=== PATIENT | female | born 1960 | race Caucasian/White ===

== ENCOUNTER 2017-09-22 08:49 | Day surgery (SDC) | payer BC ==
[~2017-09-22] VITALS: Ht 162.6 cm; Wt 70.8 kg
[~2017-09-22 08:49] MED LIST: CEFAZOLIN 1 GM IVPB PREMIX 50 ML IV ONE
[2017-09-22] MEDS ORDERED: fentaNYL CITRATE 250 MCG/5 ML AMP IV ONE (11:31)
[2017-09-22] MEDS ORDERED: PROPOFOL 200MG/ 20ML VIAL (DIPRIVAN) IV ONE (11:31)
[2017-09-22] MEDS ORDERED: KETOROLAC TROMETHAMINE 30 MG VIAL IVP ONE (11:31)
[2017-09-22] MEDS ORDERED: DEXAMETHASONE SOD PHOSPHATE 4 MG/ML VIAL IVP ONE (11:31)
[2017-09-22] MEDS ORDERED: MIDAZOLAM HCL 5 MG/5 ML VIAL IVP ONE (11:31)
[2017-09-22] MEDS ORDERED: NS 1000 ML BAG IV ONE (11:31)
[2017-09-22] MEDS ORDERED: SEVOFLURANE 15 MIN GAS INH ONE (11:31)
[2017-09-22] MEDS ORDERED: HYDROcodone/ACETAMIN 5-325 MG TAB (NORCO/ VICODIN) PO PRN (12:15)
[2017-09-22] MEDS ORDERED: OXYCODONE/ACETAMINOPHEN 5-325 TABLET PO PRN (12:15)
[2017-09-22] MEDS ORDERED: PROMETHAZINE HCL 25 MG/ML AMP IM PRN (12:15)
[2017-09-22] MEDS ORDERED: ONDANSETRON HCL 4 MG/2 ML VIAL IVP PRN ×3 (12:15→12:30)
[2017-09-22] MEDS ORDERED: LR 1,000 ML IV ONE (12:21)
[2017-09-22] MEDS ORDERED: DIPHENHYDRAMINE INJ 50 MG/ML VIAL IVP PRN (12:30)
[2017-09-22] MEDS ORDERED: KETOROLAC TROMETHAMINE 30 MG VIAL IM PRN (12:30)
[2017-09-22] MEDS ORDERED: ePHEDrine sulfate 50 MG/ML VIAL IVP PRN (12:30)
[2017-09-22] MEDS ORDERED: NALBUPHINE HCL 10 MG/ML AMP IVP PRN (12:30)
[2017-09-22] MEDS ORDERED: NALOXONE HCL 0.4 MG/ML AMP (NARCAN) IVP PRN (12:30)
[2017-09-22] MEDS ORDERED: fentaNYL CITRATE/PF 100 MCG/2 ML AMP IVP PRN (12:30)
[2017-09-22 16:11] VITALS: BP_SYST 118
== END 2017-09-22 14:30 | disposition home or self-care (01) ==
LOC: SDS 08:49 → SMU 08:50 → SDS 14:30
PROVIDERS: ATTEND Specialist
DX: N95.0 Postmenopausal bleeding (principal); Z88.8 Allergy status to other drugs, medicaments and biological substances; M19.90 Unspecified osteoarthritis, unspecified site
CPT/HCPCS: 58558; 88305; J0690; J1100; J1885; J2250; J2704; J3010; J7030; J7120

== ENCOUNTER 2017-12-04 07:05 | Observation (INO) | payer BC ==
[~2017-12-04] VITALS: Ht 162.6 cm; Wt 74.8 kg
[2017-12-04 07:14] VITALS: BP_SYST 140
[2017-12-04] MEDS: fentaNYL CITRATE/PF 100 MCG/2 ML AMP IM ONE (07:37)
[2017-12-04] MEDS: ONDANSETRON HCL 4 MG/2 ML VIAL IVP ONE (08:25)
[2017-12-04 08:33] VITALS: BP_SYST 135
[2017-12-04 08:35] LABS: BASOPHILS # (AUTO) 0.1 K/uL (0.0-0.2); BASOPHILS % (AUTO) 0.8 % (0.0-2.0); EOSINOPHILS # (AUTO) 0.2 K/uL (0.0-0.4); EOSINOPHILS % (AUTO) 2.5 % (0.0-4.0); HEMATOCRIT 39.3 % (36-48); HEMOGLOBIN 13.4 g/dL (12.0-16.0); LYMPHOCYTES # (AUTO) 1.6 K/uL (1.0-5.5); LYMPHOCYTES % (AUTO) 25.1 % (20.5-51.5); MEAN CORPUSCULAR HEMOGLOBIN 32 pg (27-31); MEAN CORPUSCULAR HGB CONC 34 % (32-36); MEAN CORPUSCULAR VOLUME 93 fL (79.0-98.0); MONOCYTES # (AUTO) 0.3 K/uL (0.0-1.0); MONOCYTES % (AUTO) 4.5 % (1.7-9.3); NEUTROPHILS # (AUTO) 4.1 K/uL (1.8-7.7); NEUTROPHILS % (AUTO) 67.1 % (40.0-70.0); PLATELET COUNT (AUTO) 359 K/uL (130-430); RED BLOOD CELL COUNT(AUTO) 4.24 MIL/uL (4.2-6.2); RED CELL DISTRIBUTION WIDTH 12.4 % (9.0-15.0); WHITE BLOOD COUNT (AUTO) 6.3 K/uL (4.8-10.8)
[2017-12-04 08:46] VITALS: BP_SYST 135
[2017-12-04 08:48] LABS: ANION GAP 7 (5-15); CALCIUM 9.2 mg/dL (8.4-11.0); CHLORIDE 104 mmol/L (98-107); CREATININE 0.69 mg/dL (0.55-1.30); GLUCOSE 127 mg/dL (70-99); POTASSIUM 3.9 mmol/L (3.5-5.1); SODIUM SERUM 138 mmol/L (136-145); UREA NITROGEN, BLOOD 19 mg/dL (8-21)
[2017-12-04 08:51] LABS: GFR AFRICAN AMERICAN 112 mL/min (>90)
[2017-12-04 08:53] LABS: ALANINE AMINOTRANSFERASE 30 U/L (12-78); ALBUMIN 3.9 g/dL (3.4-4.8); ASPARTATE AMINOTRANSFERASE 24 U/L (10-37); TOTAL BILIRUBIN 0.3 mg/dL (0.0-1.0)
[2017-12-04 09:02] LABS: ALCOHOL, BLOOD < 3 mg/dL (<10)
[2017-12-04 09:05] LABS: ACETAMINOPHEN < 1 ug/mL (1-30)
[2017-12-04 09:09] LABS: INR 0.9 (0.8-1.2); PROTHROMBIN TIME 9.3 SECS (9.5-12.5)
[2017-12-04 09:53] LABS: BILIRUBIN,URINE NEGATIVE (NEGATIVE); CLARITY/URINE CLEAR (CLEAR); COLOR,URINE YELLOW (YELLOW); GLUCOSE,URINE NEGATIVE (NEGATIVE); KETONES,URINE NEGATIVE (NEGATIVE); LEUKOCYTE ESTERASE ,URINE 1+ (NEGATIVE); NITRITE, URINE NEGATIVE (NEGATIVE); PROTEIN URINE NEGATIVE (NEGATIVE); UROBILINOGEN,URINE 0.2 (0.2-1.0)
[2017-12-04 09:59] LABS: BLOOD, URINE TRACE (NEGATIVE)
[2017-12-04] MEDS ORDERED: DEXAMETHASONE SOD PHOSPHATE 4 MG/ML VIAL IVP ONE (10:00)
[2017-12-04] MEDS ORDERED: SEVOFLURANE 15 MIN GAS INH ONE (10:00)
[2017-12-04] MEDS ORDERED: LR 1,000 ML IV.SOLN IV ONE (10:00)
[2017-12-04] MEDS ORDERED: fentaNYL CITRATE/PF 100 MCG/2 ML AMP IVP ONE (10:00)
[2017-12-04] MEDS ORDERED: ROPIVACAINE HCL/PF 5 MG/ML 0.5% 30 ML VIAL INJ ONE (10:00)
[2017-12-04] MEDS ORDERED: MIDAZOLAM HCL 5 MG/5 ML VIAL IVP ONE (10:00)
[2017-12-04] MEDS ORDERED: PROPOFOL 200MG/ 20ML VIAL (DIPRIVAN) IV ONE (10:00)
[2017-12-04] MEDS ORDERED: CEFAZOLIN 1 GM IVPB PREMIX 50 ML IV ONE (10:00)
[2017-12-04] MEDS ORDERED: ONDANSETRON HCL 4 MG/2 ML VIAL IVP ONE (10:00)
[2017-12-04] MEDS ORDERED: POLYMYXIN 500,000/BACIT.10,000 UNITS in NS IRR 1 L IR ONE (10:06)
[2017-12-04 10:09] LABS: BACTERIA,URINE FEW /HPF (None Seen); RBC,URINE 0-3 /HPF (0-3); WBC,URINE 0-3 /HPF (0-3)
[2017-12-04 10:43] LABS: BARBITURATE, URINE NEGATIVE (NEG <=200); BENZODIAZEPINE, URINE NEGATIVE (NEG <=150); CANNABINOID, URINE NEGATIVE (NEG <=50); COCAINE, URINE NEGATIVE (NEG <=150); METHAMPHETAMINES SCREEN,URINE NEGATIVE (NEG <=500); OPIATE, URINE NEGATIVE (NEG <=100); PHENCYCLIDINE SCREEN,URINE NEGATIVE (NEG <=25); UR TRICYCLIC ANTIDEPRESSANTS NEGATIVE (NEG <=300); URINE AMPHETAMINE NEGATIVE (NEG <=500); URINE METHADONE NEGATIVE (NEG <=200); URINE OXYCODONE SCREEN NEGATIVE (NEG <=100); URINE PROPOXYPHENE SCREEN NEGATIVE (NEG <=300)
[2017-12-04] MEDS ORDERED: ONDANSETRON HCL 4 MG/2 ML VIAL IVP PRN (10:45)
[2017-12-04] MEDS ORDERED: fentaNYL CITRATE/PF 100 MCG/2 ML AMP IVP PRN ×2 (10:45)
[2017-12-04] MEDS ORDERED: KETOROLAC TROMETHAMINE 30 MG VIAL IVP PRN (10:45)
[2017-12-04] MEDS ORDERED: HYDROcodone/ACETAMIN 10-325 MG TAB PO PRN (11:45)
[2017-12-04] MEDS ORDERED: HYDR-3924 PO (12:37)
[2017-12-04 12:49] VITALS: BP_SYST 114
[2017-12-04 15:44] VITALS: BP_SYST 126
[2017-12-04 16:36] VITALS: BP_SYST 126
== END 2017-12-04 17:43 | disposition home or self-care (01) ==
LOC: SED 07:05 → SMU 08:20
PROVIDERS: ADMIT Specialist; ATTEND Specialist
DX: S52.021A Displaced fracture of olecranon process without intraarticular extension of right ulna, initial encounter for closed fracture (principal); W19.XXXA Unspecified fall, initial encounter; Y92.89 Other specified places as the place of occurrence of the external cause; Y93.89 Activity, other specified; Y99.8 Other external cause status
CPT/HCPCS: 24685; 36415; 71045; 73080; 76000; 80053; 80307; 81000; 84484; 85025; 85610; 85730; 86886; 86900; 86901; 87081; 93005; 96372; 99285; C1713; G0378; G0480; G0481; G0482; J0690; J1100; J2250; J2405; J2704; J3010; J7120